=== PATIENT | female | born 1980 | race American Indian/Alaskan Native ===

== ENCOUNTER 2016-12-01 08:38 | Outpatient (CLI) | payer OTHER ==
[2015-06-20 20:24] VITALS: BP 132/74
--- NOTE | 2016-12-01 10:19 | Diagnostic Imaging Report ---
[facility] [address] [facility].[address] [address] Report Submission Date: Dec 01, 2016 9:33:50 AM FRUIT GRADER Patient Study Name: YAN PHELPS Date: Dec 01, 2016 8:48:25 AM FRUIT GRADER Modality Type: MR Gender: F Description: MRI BRAIN W/O CONTRAST : 76 Institution: [facility] Physician: SUSAN MILLER MRI of the brain without contrast Clinical history: Uncontrollable migraine headaches Routine MRI of the brain is performed without IV contrast fail to demonstrate any evidence of intracranial bleed, acute infarct, midline shift or hydrocephalus. No visible tumor mass. No signs of demyelinating process. Pituitary gland and suprasellar region are normal. Right and left cerebral and cerebellar hemispheres are normal . Impression: Normal MRI of the brain without IV contrast Electronically signed on Dec 01, 2016 9:33:50 AM FRUIT GRADER by: Judah SADLER
== END 2016-12-01 08:40 ==
LOC: RAD 08:38
PROVIDERS: ATTEND Nurse Practitioner Family
DX: G43.009 Migraine without aura, not intractable, without status migrainosus (principal)
CPT/HCPCS: 70551

== ENCOUNTER 2017-04-13 17:29 | Emergency (ER) | payer OTHER ==
--- NOTE | 2017-04-13 18:50 | ED Physician Documentation ---
Female Urogenital Problems - HISTORIAN Historian: patient, child - HPI Stated Complaint: urinary urgency, frequency Chief Complaint: Female Urogenital Problems Additional Information: pt c/o urgency freq marked dysuria-prev uti-not drinking water dt dysuria Onset: minutes, other (prog and intermittent past two months) Severity: moderate Further Comments: yes (also marked ionsomnia-out of meds and no dr recently) - Associated Symptoms Urinary Symptoms: frequent urination, discomfort w/ urination, burning w/ urination, urgency w/ urination, pain w/ urination - ROS CONST: other (severe insomnia, anxiety deporession dt loosing insurance) GI/: denies: nausea, vomiting CVS/RESP: none NEURO/PSYCH: anxiety, depression MS/SKIN/LYMPH: none - PAST HX Past History: other (chronic low back and pelvic pains udo-under care but out of meds-no insurance depression anxiety insomnia) Surgeries/Procedures: BTL (tubal revision 2012) Allergies/Adverse Reactions: Allergies Allergy/AdvReac Type Severity Reaction Status Date / Time amoxicillin Allergy Intermediate Rash Verified 04/13/17 17:56 Home Medications: Ambulatory Orders Medication Instructions Recorded Tramadol HCl [Ultram] 50 mg PO HS u2 10/24/15 - SOCIAL HX Smoking History: less than 1 pack/day Alcohol Use: none Drug Use: none - FAMILY HX Family History: none - VITAL SIGNS Vital Signs: Vital Signs Temp Pulse Resp BP Pulse Ox 99.6 F 81 18 126/84 98 04/13/17 17:45 04/13/17 17:45 04/13/17 17:45 04/13/17 17:45 04/13/17 17:45 - REVIEWED ASSESSMENTS Nursing Assessment Reviewed: Yes Vitals Reviewed: Yes Progress - Results/Orders Results/Orders: = no infection apparent but sig dehydration Female Urogenital Problems - EXAM General Appearance: moderate distress, anxious EENT: eye inspection normal Neck: nml inspection Respiratory: no resp. distress, breath sounds nml CVS: reg rate & rhythm, heart sounds normal Abdomen: soft, non-tender Back: muscle spasm Skin: color nml, no rash Extremities: non-tender Neuro: oriented X3, motor nml, sensation nml, depressed mood/affect Discharge Clincal Impression: dehydration w/marked dysuria, anxiety insomnia, depression Referrals: Jacqueline Garcia FNP [Primary Care Provider] - 2 Days Home Medications: Ambulatory Orders Tramadol HCl [Ultram] 50 mg PO HS u2 10/24/15 Comments: must inc hydration see pcp. consul re insomnia Condition: Good Disposition: HOME, SELF-CARE Decision to Admit: NO Decision Time: 18:49
[2017-04-13 21:53] VITALS: BP 122/71
== END 2017-04-13 18:58 | disposition home or self-care (01) ==
LOC: ED 17:29
DX: E86.0 Dehydration (principal); R30.0 Dysuria; F41.8 Other specified anxiety disorders; G47.00 Insomnia, unspecified
CPT/HCPCS: 99283

== ENCOUNTER 2019-10-01 09:01 | Emergency (ER) | payer OTHER ==
--- NOTE | 2019-10-01 09:27 | ED Physician Documentation ---
Abdominal Pain - HISTORIAN Historian: patient - HPI Stated Complaint: Rt side abd pain Chief Complaint: Abdominal Pain Additonal Information: Patient presents to ED with right sided abdominal pain since Friday with associated nausea/vomiting/diarrhea. Patient states the pain is constant, 8/10, sharp stabbing, nonradiating. She had diarrhea on Friday and friday with nausea/vomiting starting today. She denies fever, chills. No previous abdominal surgeries reported. Onset: days ago (3) Duration: constant Timing: still present Context: denies: out of country travel, bad food Severity: moderate Quality: pain, sharp, stabbing Associated Symptoms: nausea, vomiting, diarrhea. denies: fever, chills, bloody stools Exacerbated by: other (bowel movement, vomiting) Relieved by: nothing - ROS CONST: no problems GI/: none CVS/RESP: none EYES/ENT: none MS/SKIN/LYMPH: none NEURO/PSYCH: none - SOCIAL HX Smoking History: non-smoker Alcohol Use: none Drug Use: none - FAMILY HX Family History: no significant history - PAST HX Past History: none Ischemic Bowel Risk Factors: none Other History: none Surgeries/Procedures: none Home Medications: Ambulatory Orders Medication Instructions Recorded Tramadol HCl [Ultram] 50 mg PO HS u2 10/24/15 Ketorolac Tromethamine [Toradol] 10 mg PO Q6H PRN #20 tablet 10/01/19 Ondansetron HCl Rapdis [Zofran Odt] 4 mg PO Q8 PRN #20 tab 10/01/19 Allergies/Adverse Reactions: Allergies Allergy/AdvReac Type Severity Reaction Status Date / Time amoxicillin Allergy Intermediate Rash Verified 10/01/19 09:21 - VITAL SIGNS Vital Signs: Vital Signs Temp Pulse Resp BP Pulse Ox 95.6 F L 73 19 112/74 98 10/01/19 09:10 10/01/19 09:10 10/01/19 09:10 10/01/19 09:10 10/01/19 09:10 - REVIEWED ASSESSMENTS Nursing Assessment Reviewed: Yes Vitals Reviewed: Yes ED Results Lab/Radiology - Lab Results Lab Results: Lab Results 10/01/19 10/01/19 09:43 09:43 WBC 5.10 K/ul K/ul (4.00-12.00) RBC 4.91 M/ul M/ul (3.90-5.20) Hgb 13.7 g/dL g/dL (11.5-16.0) Hct 40.2 % % (34.5-46.5) MCV 82.0 fl fl (80.0-100.0) MCH 27.9 pg L pg (28.0-34.0) MCHC 34.1 g/dL g/dL (30.0-36.0) RDW 13.7 % % (11.3-14.3) Plt Count 141 K/mm3 K/mm3 (130-400) Neut % (Auto) 60.5 % % (39.0-79.0) Lymph % (Auto) 27.8 % % (16.0-50.0) [place] % (Auto) 7.5 % % (0.0-11.0) Eos % (Auto) 3.2 % % (0.0-6.8) Baso % (Auto) 1.0 % % (0.0-1.5) Neut # (Auto) 3.1 # k/uL # k/uL (1.4-7.7) Lymph # (Auto) 1.4 # k/uL # k/uL (0.6-4.0) [place] # (Auto) 0.4 # k/uL # k/uL (0.0-0.9) Eos # (Auto) 0.2 # k/uL # k/uL (0.0-0.6) Baso # (Auto) 0.1 # k/uL # k/uL (0.0-0.5) Sodium 139 mmol/L mmol/L (137-145) Potassium 3.4 mmol/L L mmol/L (3.5-5.1) Chloride 102 mmol/L mmol/L (98-107) Carbon Dioxide 29 mmol/L mmol/L (22-30) Anion Gap 11.4 BUN 11 mg/dL mg/dL (7-17) Creatinine 0.64 mg/dL mg/dL (0.52-1.04) Estimated Creat Clear 126 Est GFR ( Amer) > 60 (60 - ) Est GFR (Non-Af Amer) > 60 (60 - ) Glucose 88 mg/dL mg/dL (74-106) Calcium 8.8 mg/dL mg/dL (8.4-10.2) Total Bilirubin 0.4 mg/dL mg/dL (0.2-1.3) AST 37 U/L U/L (15-46) ALT 12 U/L U/L (4-35) Alkaline Phosphatase 62 U/L U/L (38-126) Total Protein 7.1 g/dL g/dL (6.3-8.2) Albumin 4.2 g/dL g/dL (3.5-5.0) UA- glucose neg, ketone neg, blood neg, nitrate neg, leukocytes neg. - Radiology Radiology Impressions: Report Submission Date: Oct 01, 2019 10:26:33 AM HAND STRIPER Patient Study Name: YAN PHELPS Date: Oct 01, 2019 9:47:11 AM HAND STRIPER Modality Type: CT\SR Gender: F Description: CT ABD PELVIS W/ CON : 76 Institution: [facility] Physician: SUZAN RIVERA CT abdomen and pelvis with contrast History: Abdominal pain with nausea, vomiting and diarrhea for 4 days Technique: Helically acquired images were obtained from the hemidiaphragms to the pelvic floor following IV but no oral contrast. Findings: The liver, spleen, gallbladder, adrenal glands, right kidney and the abdominal aorta are unremarkable. Three calyceal stones are present at the lower pole of the left kidney. The largest of these measures 3 mm. The appendix is well visualized and is normal. Small and large bowel loops are normal in caliber. The uterus and left ovary are unremarkable for age. There is a 4 cm cyst of the right ovary as well as a small crenating 1.6 cm cyst. There is a small amount of free fluid within the posterior cul-de-sac, likely relating to recent cyst rupture. The bladder is completely decompressed. The lung bases are clear. There is mild vacuum disc phenomenon at L5/S1. Impression: Calyceal stones lower pole left kidney Normal appendix. 4 cm cyst of the right ovary as well as a crenating 1.6 cm cyst. There is a small amount of free fluid in the posterior cul-de-sac consistent with recent cyst rupture. Electronically signed on Oct 01, 2019 10:26:33 AM HAND STRIPER by: Valeri Dai - Orders Orders: ED Orders Category Date Time Status Place IV Lock 1T Care 10/01/19 09:[address] ABD & PELVIS W/ CON Stat Exams 10/01/19 Completed CBC/PLATELET/DIFF Routine Lab 10/01/19 09:43 Completed CMP Routine Lab 10/01/19 09:43 Completed HCG [URINE HCG] Stat Lab 10/01/19 Uncollected UA W/MICRO IF INDICATED Routine Lab 10/01/19 09:18 Ordered 0.9 % Sodium Chloride [Normal Saline] 1,000 ml Med 10/01/19 09:24 Discontinued IV Q1H Ondansetron HCl/Pf [Zofran] Med 10/01/19 09:24 Discontinued 4 mg IVP NOW ONE Abdominal Pain Physical Exam - Physical Exam General Appearance: no acute distress, alert EENT: NICO NECK: supple RESPIRATORY: no resp distress, chest non-tender, breath sounds normal CVS: reg rate & rhythm, heart sounds normal ABDOMEN: soft, normal bowel sounds, tenderness (right side, RUQ) BACK: normal inspection SKIN: warm/dry EXTREMITIES: non-tender NEURO: oriented X3, motor nml, mood/affect nml Vital Signs: Vital Signs Temp Pulse Resp BP Pulse Ox 95.6 F L 73 19 112/74 98 10/01/19 09:10 10/01/19 09:10 10/01/19 09:10 10/01/19 09:10 10/01/19 09:10 Discharge Clincal Impression: Rupture of cyst of right ovary Constipation Qualifiers: Constipation type: unspecified constipation type Qualified Code(s): K59.00 - Constipation, unspecified Prescriptions: Ketorolac Tromethamine [Toradol] 10 mg PO Q6H PRN #20 tablet PRN Reason: pain Ondansetron HCl Rapdis [Zofran Odt] 4 mg PO Q8 PRN #20 tab PRN Reason: nausea/vomiting Referrals: Jacqueline Garcia FNP [Primary Care Provider] - 2 Days Additional Instructions: 1. Drink plenty of water. Target daily intake is 3 liters. Avoid caffeine and alcohol 2. Eat 5-7 servings of fruit/vegetables daily. 3. Miralax, Senokot and/or Colace daily to maintain daily bowel movements 5. Dulcolax, Magnesium Citrate, or Fleet enema daily as needed for persistent constipation 6. Follow up with PCP within 1 week 7. Return to ER for new or worsening symptoms Condition: Stable Decision to Admit: NO Date of Decison to Admit: 10/01/19 Decision Time: 10:34
[2019-10-01] MEDS: 0.9 % SODIUM CHLORIDE 1,000 ML IV ONE (09:37)
[2019-10-01] MEDS: ONDANSETRON HCL/PF 4 MG/ 2ML VIAL IVP ONE (09:37)
[2019-10-01 09:48] LABS: NEUTROPHILS # 3.1 # k/uL (1.4-7.7)
[2019-10-01 09:54] LABS: eGFR (Non-African) > 60
--- NOTE | 2019-10-01 10:31 | Diagnostic Imaging Report ---
PATIENT MR#: [id number] PATIENT PATIENT NAME: YAN PHELPS DATE OF : 1980 REFERRING PHYSICIAN: Vickie Lester EXAM DATE: 10/01/2019 ACCESSION NUMBER: [id number] EXAM DESCRIPTION: CT ABD PELVIS W/ CON CT abdomen and pelvis with contrast History: Abdominal pain with nausea, vomiting and diarrhea for 4 days Technique: Helically acquired images were obtained from the hemidiaphragms to the pelvic floor follo wing IV but no oral contrast. Findings: The liver, spleen, gallbladder, adrenal glands, right kidney and the abdominal aorta are u nremarkable. Three calyceal stones are present at the lower pole of the left kidney. The largest of these measures 3 mm . The appendix is well visualized and is normal. Small and large bowel loops are normal in caliber. The uterus and le ft ovary are unremarkable for age. There is a 4 cm cyst of the right ovary as well as a small crenating 1.[address] There is a small amount of free fluid within the posterior cul-de-sac, likely relating to recent cyst rupture. The bladder is completely decompressed. The lung bases are clear. There is mild vacuum disc phenomenon at L5/S1. Impression: Calyceal stones lower pole left kidney Normal appendix. 4 cm cyst of the right ovary as well as a crenating 1.6 cm cyst. There is a small amount of free flu id in the posterior cul-de-sac consistent with recent cyst rupture. Read by: Dr. Valeri Dai Transcribed by: Transcribed Date: Electronically signed by: Dr. Valeri Dai Date signed: 10/01/2019 10:30:14 AM
[2019-10-01] MEDS: KETOROLAC TROMETHAMINE 30 MG/1ML VIAL IV ONE (10:42)
[2019-10-01 10:56] LABS: APPEARANCE,URINE CLEAR (CLEAR); COLOR,URINE YELLOW (YELLOW); OCCULT BLOOD,URINE NEGATIVE (NEGATIVE); URINE HCG NEGATIVE (NEGATIVE); UROBILINOGEN URINE 0.2 Eu (0.2-1.0)
[2019-10-01 11:16] VITALS: BP 118/62
== END 2019-10-01 11:11 ==
LOC: ED 09:01
DX: N83.201 Unspecified ovarian cyst, right side (principal); K59.00 Constipation, unspecified
CPT/HCPCS: 74177; 80053; 81002; 81025; 85025; 96374; 96375; 99284; J1885; J2405; J7030; Q9967; S1016